=== PATIENT | male | born 1980 | race Caucasian/White ===

== ENCOUNTER 2020-02-22 14:40 | Emergency (ER) | payer OTHER ==
[~2020-02-22] VITALS: Ht 185.4 cm; Wt 90.7 kg
[2020-02-22] MEDS ORDERED: NS 1000ML 1,000 ML IV STA (14:42)
[2020-02-22 14:45] VITALS: BP 167/124
--- NOTE | 2020-02-22 14:46 | PCM.EKG ---
[facility] Test Date: 2020-02-22 Test Time: 14:25:57 Pat Name: ELIZABETH AGUILAR Department: Patient ID: [id number] Room: Gender: M Tool Grinder Operator External: : 1980 Requested By: DENNIS VARMA Order Number: [id number] Reading MD: Phuong Varma Measurements Intervals [place] Rate: 80 P: 58 [place]: 170 QRS: 90 QRSD: 98 T: 55 QT: 359 QTc: 415 Interpretive Statements Sinus rhythm Borderline right axis deviation ST elev, probable normal early repol pattern No previous ECG available for comparison Electronically Signed On 02-25-2020 7:01:12 CDT by Phuong Varma Please click the below link to view image of tracing.
--- NOTE | 2020-02-22 14:49 | ER.PDOC ---
General Chief Complaint: Requesting Medical Care Stated Complaint: CHEST PAIN/SOB Time seen by MD: 14:45 Source: patient Exam Limitations: no limitations History of Present Illness Initial Comments chest pain, onset with exertion, radiates to left arm, described as heavy/pressure, + SOB, + diaphoresis, + nausea; father had OH at 37 YOA Timing/Duration: 1 hour Severity/Quality: moderate (6*7/10), severe, aching, dull, pressure Radiation: arms (left) Activities at Onset: activity/exertion Prior CP/Workup: No Prior Chest Pain, No Prior Cardiac Workup Nitro Today/Relief: No Nitro Taken Today Aspirin Today: No Aspirin Today Associated Symptoms: diaphoresis, nausea/vomiting, shortness of breath Past Medical History Medical History: no pertinent history Surgical History: no surgical history Family History Significant Family History: heart disease (father had first OH at 37 YOA) Social History Smoking: cigarettes Drug Use: none Constitutional: diaphoresis EENTM: no symptoms reported Respiratory: shortness of breath Cardiovascular: chest pain Gastrointestinal: nausea Musculoskeletal: no symptoms reported Physical Exam General Appearance: WD/WN, Anxious Respiratory: no respiratory distress, no accessory muscle use, wheezing (wheezing on left) Cardiovascular: Regular Rate, Rhythm Gastrointestinal: Normal Bowel Sounds, No Pulsatile Mass, Non Tender Extremities: No Pedal Edema, No Calf Tenderness Neurologic/Psychiatric: Alert, Normal Mood/Affect, Oriented x 3 Skin: Normal Color, Warm/Dry Results/Orders Results/Orders Orders - DENNIS VARMA DO Cbc With Auto Diff (02/22/20 14:42) Comprehensive Metabolic Panel (02/22/20 14:42) Creatine Kinase (02/22/20 14:42) Creatine Kinase Mb (02/22/20 14:42) Troponin I (02/22/20 14:42) Probnp B-Type Solar Electric Installer (02/22/20 14:42) PT (02/22/20 14:42) Partial Thromboplastin Time. (02/22/20 14:42) Helicobacter Pylori (02/22/20 14:42) D-Dimer (02/22/20 14:42) Xr Chest 1v (02/22/20 14:42) Ekg-Routine (02/22/20 14:42) Aspirin (Aspirin) (02/22/20 15:00) Nitroglycerin (Nitrostat) (02/22/20 15:00) Saline Lock (02/22/20 14:42) 0.9 % Sodium Chloride (Ns 1000ml) (02/22/20 14:42) Progress Progress Cardiac enzymes negative. 2nd troponin, 2 hours later normal. EKG normal. EKG/XRAY/CT/US EKG: NSR, no ST T wave changes XRAY: chest (clear) Departure Time of Disposition: 17:44 Disposition: 01 HOME, SELF-CARE Impression: Primary Impression: Chest pain Condition: Improved Patient Instructions: Chest Pain (Nonspecific) Referrals: PCP,UNKNOWN (PCP) PRIMARY CARE PROVIDER KARTHIK GONZALES DO Additional Instructions: Follow up with Dr. Gonzales next week for further cardiac evaluation. Return to the ER if your pain returns, difficulty breathing, vomiting, fainting, or for any other emergent concerns. Take an 81 mg aspirin daily. Stop smoking. Duration or Time Spent with Pa: 25 Problem Qualifiers Primary Impression: Chest pain Chest pain type: intercostal pain Qualified Codes: R07.82 - Intercostal pain DENNIS VARMA DO Feb 22, 2020 14:48
[2020-02-22] MEDS ORDERED: NS 1000ML 1,000 ML ONE (14:53)
[2020-02-22] MEDS ORDERED: NITROSTAT SL ONE (14:54)
[2020-02-22] MEDS ORDERED: ASPIRIN ONE (14:54)
[2020-02-22 14:57] LABS: BASOPHIL % 0.4 % (0.0-0.2); EOSINOPHIL # 0.2 10^3/uL (0.0-0.2); EOSINOPHIL % 2.7 % (0.0-5.0); LYMPHOCYTES # 2.22 10^3/uL1 (1.0-4.8); LYMPHOCYTES % 26.1 % (24.0-44.0); MEAN CORP HGB 28.2 pg (26-34); MONOCYTES % 11.6 % (5.0-12.0); NEUTROPHILS % 59.1 % (41.0-85.0); PLATELET COUNT 229 10^3/uL (150-400); RED CELL DISTRIBUTION WIDTH 13.6 % (11.5-14.5)
[2020-02-22] MEDS ORDERED: ASPIRIN PO PRN (15:00)
[2020-02-22] MEDS ORDERED: NITROSTAT SL PRN (15:00)
--- NOTE | 2020-02-22 15:09 | DIREP ---
PROCEDURE:CHEST 1 VIEW COMPARISON:None. INDICATIONS:chest pain FINDINGS: LUNGS/PLEURA:No significant pulmonary parenchymal abnormalities. No effusions. VASCULATURE:Normal. Unremarkable pulmonary vasculature. CARDIAC:Normal. No cardiac silhouette abnormality or cardiomegaly. MEDIASTINUM:Normal. No visible mass or adenopathy. BONES:Normal. No fracture or visible bony lesion. OTHER:Negative. CONCLUSION:No acute disease. Dictated by: Agustín Urias MD on 02/22/2020 at 03:07 PM
[2020-02-22 15:23] LABS: ALANINE AMINOTRANSFERASE(ML) 24 U/L (12-78); ALKALINE PHOSPHATASE 82 U/L (50-136); ASPARTATE AMINO TRANSFERASE 21 U/L (0-35); CALCIUM 8.9 mg/dL (8.4-10.5); GLUCOSE 86 mg/dL (70-110)
[2020-02-22 16:04] VITALS: BP 156/69
[2020-02-22 17:29] VITALS: BP 138/81
[2020-02-22 17:59] VITALS: BP 131/66
== END 2020-02-22 18:07 | disposition home or self-care (01) ==
LOC: ER 14:40
DX: R07.9 Chest pain, unspecified (principal); R11.2 Nausea with vomiting, unspecified; R06.02 Shortness of breath; F17.210 Nicotine dependence, cigarettes, uncomplicated
CPT/HCPCS: 36415; 71045; 80053; 82550; 82553; 83880; 84484 ×2; 85025; 85379; 85610; 85730; 86677; 93005; 96360; 99285; J7030